=== PATIENT | male | born 1955 | race Caucasian/White ===

== ENCOUNTER 2017-05-18 08:41 | Day surgery (SDC) | payer OTHER ==
[~2017-05-18] VITALS: Ht 182.9 cm; Wt 127.1 kg
[~2017-05-18 08:41] MED LIST: ATEN25 PO; CARV6.25 PO; DICL75ER PO; IBUP400 PO; OMEP20ER PO
== END 2017-05-18 11:28 | disposition home or self-care (01) ==
LOC: ORSCSDS 08:41
PROVIDERS: Internal Medicine Gastroenterology
PROC: 0DB58ZX Excision of Esophagus, Via Natural or Artificial Opening Endoscopic, Diagnostic (ICD-10-PCS; principal; 2017-05-18 10:30)
DX: K22.70 Barrett's esophagus without dysplasia (principal); K44.9 Diaphragmatic hernia without obstruction or gangrene; E66.01 Morbid (severe) obesity due to excess calories; Z68.38 Body mass index [BMI] 38.0-38.9, adult; Z79.899 Other long term (current) drug therapy; Z87.891 Personal history of nicotine dependence
CPT/HCPCS: 88305; J7120

== ENCOUNTER 2020-03-24 10:31 | Day surgery (SDC) | payer MEDICARE, BC ==
[~2020-03-24] VITALS: Ht 180.3 cm; Wt 125.0 kg
[~2020-03-24 10:31] MED LIST changes: +ELIQUIS5 MG PO; +LOSA50 PO
[2020-03-24] MEDS ORDERED: IBUPROFEN200 M1 PO (11:47)
--- NOTE | 2020-03-24 13:05 | NUR ---
PT DROWSY POST CARDIOVERSION, BUT ANSWERING QUESTIONS APPROPRIATELY; DENIES PAIN POST PROCEDURE. MONITOR SB/SR 50-60'S, B/P 123/69, AFEBRILE, SPO2 92-93% RA.
--- NOTE | 2020-03-24 13:50 | NUR ---
PT DRESSED SELF WITHOUT ANY ISSUES, IV REMOVED-CANNULA INTACT.
--- NOTE | 2020-03-24 14:01 | NUR ---
PT RECEIVED DISCHARGE INSTRUCTIONS, MED LIST AND AFTER CARE INSTRUCTIONS; VERBALIZED GOOD UNDERSTANDING. PT LEFT FACILITY VIA W/C, CONDITION STABLE.
== END 2020-03-24 22:38 | disposition home or self-care (01) ==
LOC: MHTC 10:31
DX: I48.0 Paroxysmal atrial fibrillation (principal); I10 Essential (primary) hypertension; Z79.899 Other long term (current) drug therapy; Z79.01 Long term (current) use of anticoagulants; Z88.4 Allergy status to anesthetic agent; Z88.8 Allergy status to other drugs, medicaments and biological substances
CPT/HCPCS: 92960; 93005; 93010; 99152; J2250; J3010; J7030

== ENCOUNTER → 2020-08-19 | Outpatient (CLI) | payer MEDICARE, BC ==
[~2020-08-19] MED LIST changes: +IBUPROFEN200 M1 PO
[2020-08-19 13:43] LABS: Stool Occult Bld Immuno 1 Negative (NEGATIVE); Stool Occult Bld Immuno 2 Negative (NEGATIVE)
== END | disposition home or self-care (01) ==
LOC: LAB SHORT 06:45 → LAB 06:45
PROVIDERS: Internal Medicine Gastroenterology
DX: Z12.11 Encounter for screening for malignant neoplasm of colon (principal)
CPT/HCPCS: 82274

== ENCOUNTER 2023-04-11 06:20 | Day surgery (SDC) | payer MEDICARE, BC ==
[2023-04-11] VITALS (9 sets, daily range): BP systolic 114–128; BP diastolic 73–96
[2023-04-11] MEDS ORDERED: Flecainide Acet50 MG PO (06:29)
[2023-04-11] MEDS ORDERED: AMLO5 PO (06:29)
--- NOTE | 2023-04-11 07:19 | NUR ---
ASSUMED CARE FROM DR COWART. PT AWAKE AND VERBALIZING WELL. SR 65-70BPM POST CARDIOVERSION.
--- NOTE | 2023-04-11 08:00 | NUR ---
PT AND VERBALIZED UNDERSTANDING OF WRITTEN AND VERBAL D/C INST. IV REMOVED. SR 70BPM ON D/C. PT TAKEN OUT OF THE HRT CENTER VIA W/C.
== END 2023-04-11 23:03 | disposition home or self-care (01) ==
LOC: MHTC 06:20
DX: I48.0 Paroxysmal atrial fibrillation (principal); I10 Essential (primary) hypertension; I48.19 Other persistent atrial fibrillation; I25.10 Atherosclerotic heart disease of native coronary artery without angina pectoris; Z92.89 Personal history of other medical treatment
CPT/HCPCS: 92960; J2704; J7030